=== PATIENT | male | born 1955 | race Caucasian/White ===

== ENCOUNTER 2017-09-08 16:18 | Emergency (ER) | payer MEDICAID ==
[2017-09-08] MEDS ORDERED: Acetaminophen 500 MG Tab PO ONE (16:56)
[2017-09-08] MEDS ORDERED: Lactated Ringers 1,000 ML IV ONE ×2 (16:56→17:56)
--- NOTE | 2017-09-08 17:07 | EDM.PDOC ---
ED HPI GENERAL MEDICAL PROBLEM - General Chief Complaint: Exposure to Heat or Cold Stated Complaint: POSSIBLE HEAT EXHAUSTION Time Seen by Provider: 09/08/17 16:50 Source of Information: Reports: Patient, RN History Limitations: Reports: Other (incomplete old records) - History of Present Illness INITIAL COMMENTS - FREE TEXT/NARRATIVE: 61 yo male here with chills and a couple of episodes of vomiting. Has had some dysuria since yesterday. Normally has nocturia x one. No rash, cough, SOB, or diarrhea. No abdominal pain. Was unaware of fever before arrival. Onset: Gradual Onset Date: 09/07/17 Duration: Hour(s):, Getting Worse Location: Reports: Generalized Quality: Reports: Burning (mild with urination, no other pain.) Severity: Mild Improves with: Reports: None Worsens with: Reports: Other (? time) Context: Reports: Other (unknown) Associated Symptoms: Reports: Fever/Chills, Malaise, Nausea/Vomiting, Weakness. 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) Back Pain Score (Numeric/FACES): 3 - Related Data Allergies Allergy/AdvReac Type Severity Reaction Status Date / Time No Known Allergies Allergy Verified 09/08/17 16:50 Home Meds: Home Meds Aspirin [Halfprin] 81 mg PO DAILY 09/08/17 [History] Lisinopril 1 tab PO DAILY 09/08/17 [History] Past Medical History Cardiovascular History: Reports: Hypertension - Infectious Disease History Infectious Disease History: Reports: Chicken Pox, Measles, Mumps - Past Surgical History HEENT Surgical History: Reports: Cataract Surgery Musculoskeletal Surgical History: Reports: Arthroscopic Procedure Social & Family History - Tobacco Use Smoking Status *Q: Current Some Day Smoker Years of Tobacco use: 40 Packs/Tins Daily: 0.2 Used Tobacco, but Quit: No Second Hand Smoke Exposure: Yes - Caffeine Use Caffeine Use: Reports: Coffee, Energy Drinks, Soda, Tea - Alcohol Use Days Per Week of Alcohol Use: 0 - Recreational Drug Use Recreational Drug Use: No ED ROS GENERAL - Review of Systems Review Of Systems: See Below Constitutional: Reports: Fever, Chills, Malaise, Weakness HEENT: Reports: No Symptoms Respiratory: Reports: No Symptoms Cardiovascular: Reports: No Symptoms Endocrine: Reports: No Symptoms GI/Abdominal: Reports: Nausea, Vomiting. Denies: Abdominal Pain, Diarrhea : Reports: Dysuria (mild), Urgency. Denies: Flank Pain, Urinary Retention Musculoskeletal: Reports: No Symptoms Skin: Reports: No Symptoms Neurological: Reports: No Symptoms Psychiatric: Reports: No Symptoms ED EXAM, GENERAL - Physical Exam Exam: See Below Exam Limited By: No Limitations General Appearance: Alert, WD/WN, No Apparent Distress, Obese Eye Exam: Bilateral Eye: Normal Inspection, PERRL Ears: Normal External Exam, Normal Canal, Normal TMs, Hearing Loss (mild) Ear Exam: Bilateral Ear: Auricle Normal, Canal Normal, TM normal Nose: Normal Inspection, Normal Mucosa, No Blood Throat/Mouth: Normal Inspection, Normal Lips, Normal Oropharynx, Normal Voice, No Airway Compromise Head: Atraumatic, Normocephalic Neck: Normal Inspection, Supple, Non-Tender Respiratory/Chest: No Respiratory Distress, Lungs Clear, Normal Breath Sounds, No Accessory Muscle Use, Chest Non-Tender Cardiovascular: Regular Rate, Rhythm, No Edema, Tachycardia GI/Abdominal: Normal Bowel Sounds, Soft, Non-Tender, No Distention Back Exam: Normal Inspection. No: CVA Tenderness (R), CVA Tenderness (L) Extremities: Normal Inspection, Normal Range of Motion, Non-Tender, No Pedal Edema Neurological: Alert, Oriented, CN II-XII Intact, Normal Cognition, No Motor/ Sensory Deficits Psychiatric: Normal Affect, Normal Mood Skin Exam: Warm, Dry, Intact, Normal Color, No Rash Lymphatic: No Adenopathy Course - Vital Signs Text/Narrative:: Called Dr. Warner @ 1810h Last Recorded V/S: Last Vital Signs Temp 38.3 C H 09/08/17 19:28 Pulse 90 09/08/17 19:28 Resp 15 09/08/17 19:28 BP 116/59 L 09/08/17 19:28 Pulse Ox 94 L 09/08/17 19:28 - Orders/Labs/Meds Labs: Laboratory Tests 09/08/17 09/08/17 09/08/17 Range/Units 17:00 17:00 17:00 WBC 13.1 H (4.5-11.0) K/uL RBC 5.22 (4.30-5.90) M/uL Hgb 15.3 H (12.0-15.0) g/dL Hct 45.8 (40.0-54.0) % MCV 88 (80-98) fL MCH 29 (27-31) pg MCHC 33 (32-36) % Plt Count 206 (150-400) K/uL Sodium 139 L (140-148) mmol/L Potassium 4.2 (3.6-5.2) mmol/L Chloride 103 (100-108) mmol/L Carbon Dioxide 23 (21-32) mmol/L Anion Gap 17.2 H (5.0-14.0) mmol/L BUN 21 H (7-18) mg/dL Creatinine 1.2 (0.8-1.3) mg/dL Est Cr Clr Drug Dosing 76.11 mL/min Estimated GFR (MDRD) > 60 (>60) Glucose 156 H (74-106) mg/dL Lactic Acid 2.3 H (0.4-2.0) mmol/L Calcium 8.4 L (8.5-10.1) mg/dL Urine Color Urine Appearance Urine pH (4.5-8.0) Ur Specific [place] (1.008-1.030) Urine Protein (NEGATIVE) mg/dL Urine Glucose (UA) (NEGATIVE) mg/dL Urine Ketones (NEGATIVE) mg/dL Urine Occult Blood (NEGATIVE) Urine Nitrite (NEGAITVE) Urine Bilirubin (NEGATIVE) Urine Urobilinogen (NORMAL) mg/dL Ur Leukocyte Esterase (NEGATIVE) Urine RBC (0-5) Urine WBC (0-5) Ur Epithelial Cells Amorphous Sediment Urine Bacteria Urine Mucus 09/08/17 Range/Units 17:54 WBC (4.5-11.0) K/uL RBC (4.30-5.90) M/uL Hgb (12.0-15.0) g/dL Hct (40.0-54.0) % MCV (80-98) fL MCH (27-31) pg MCHC (32-36) % Plt Count (150-400) K/uL Sodium (140-148) mmol/L Potassium (3.6-5.2) mmol/L Chloride (100-108) mmol/L Carbon Dioxide (21-32) mmol/L Anion Gap (5.0-14.0) mmol/L BUN (7-18) mg/dL Creatinine (0.8-1.3) mg/dL Est Cr Clr Drug Dosing mL/min Estimated GFR (MDRD) (>60) Glucose (74-106) mg/dL Lactic Acid (0.4-2.0) mmol/L Calcium (8.5-10.1) mg/dL Urine Color Yellow Urine Appearance Cloudy Urine pH 5.0 (4.5-8.0) Ur Specific [place] 1.025 (1.008-1.030) Urine Protein 30 H (NEGATIVE) mg/dL Urine Glucose (UA) Normal (NEGATIVE) mg/dL Urine Ketones 15 H (NEGATIVE) mg/dL Urine Occult Blood Large (NEGATIVE) Urine Nitrite Positive H (NEGAITVE) Urine Bilirubin Small (NEGATIVE) Urine Urobilinogen 1 (NORMAL) mg/dL Ur Leukocyte Esterase Large (NEGATIVE) Urine RBC 5-10 H (0-5) Urine WBC 20-30 H (0-5) Ur Epithelial Cells Rare Amorphous Sediment Not seen Urine Bacteria Many Urine Mucus Few Meds: Medications Discontinued Medications Generic Name Dose Route Start Last Admin Trade Name Freq PRN Reason Stop Dose Admin Acetaminophen 1,000 mg 09/08/17 16:56 09/08/17 17:27 Tylenol Extra Strength PO 09/08/17 16:57 1,000 mg ONETIME ONE Administration Cefdinir 600 mg 09/08/17 20:01 09/08/17 20:28 Omnicef PO 09/08/17 20:02 600 mg ONETIME ONE Administration Lactated Ringer's 1,000 mls @ 1,000 mls/hr 09/08/17 16:56 09/08/17 17:24 Ringers, Lactated IV 09/08/17 17:55 1,000 mls/hr BOLUS ONE Administration Ciprofloxacin/Dextrose 400 mg/ 200 mls @ 200 mls/hr 09/08/17 17:49 09/08/17 19:04 Premix IV 09/08/17 18:48 Not Given ONETIME ONE Lactated Ringer's 1,000 mls @ 1,000 mls/hr 09/08/17 17:56 09/08/17 18:28 Ringers, Lactated IV 09/08/17 18:55 1,000 mls/hr BOLUS ONE Administration Ciprofloxacin/Dextrose 400 mg/ 200 mls @ 200 mls/hr 09/08/17 18:07 09/08/17 18:33 Premix IV 09/08/17 19:06 200 mls/hr ONETIME ONE Administration Sodium Chloride 1,000 mls @ 999 mls/hr 09/08/17 20:00 Normal Saline IV ASDIRECTED [facility] Departure - Departure Time of Disposition: 19:15 Disposition: Home, Self-Care 01 Clinical Impression: Dehydration Urinary tract infection Qualifiers: Urinary tract infection type: site unspecified Hematuria presence: without hematuria Qualified Code(s): N39.0 - Urinary tract infection, site not specified - Discharge Information Instructions: Dehydration, Adult, [id number], Urinary Tract Infection, Adult Referrals: PCP,None [Primary Care Provider] - Forms: ED Department Discharge Care Plan Goals: A: Uti, dehydration P: will plan to discharge to home. advise to drink atleast 3- 20 ounce of water daily, avoid energy drinks take medication as prescribed, start tomorrow morning. return to ER immediately for any worsen fever, chills, nausea, vomiting, diarrhea, rash or not improving. follow up with Primary Care for recheck in 7 to 10 day
[2017-09-08] MEDS ORDERED: Ciprofloxacin in D5W 400 MG in Premix Bag 1 BAG IV ONE ×4 (17:49→18:07)
[2017-09-08] MEDS ORDERED: Sodium Chloride 0.9% 1,000 ML IV SCH (20:00)
[2017-09-08] MEDS ORDERED: Cefdinir 300 MG Cap PO ONE (20:01)
--- NOTE | 2017-09-08 20:17 | EDM.PDOC ---
ED HPI GENERAL MEDICAL PROBLEM - General Chief Complaint: Possible Sepsis Stated Complaint: POSSIBLE HEAT EXHAUSTION Time Seen by Provider: 09/08/17 16:50 Source of Information: Reports: Patient, RN History Limitations: Reports: Other (incomplete old records) - History of Present Illness INITIAL COMMENTS - FREE TEXT/NARRATIVE: 61 yo male here with chills and a couple of episodes of vomiting. Has had some dysuria since yesterday. Normally has nocturia x one. No rash, cough, SOB, or diarrhea. No abdominal pain. Was unaware of fever before arrival. Onset: Gradual Onset Date: 09/07/17 Duration: Hour(s):, Getting Worse Location: Reports: Generalized Quality: Reports: Burning (mild with urination, no other pain.) Severity: Mild Improves with: Reports: None Worsens with: Reports: Other (? time) Context: Reports: Other (unknown) Associated Symptoms: Reports: Fever/Chills, Malaise, Nausea/Vomiting, Weakness. 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) Back Pain Score (Numeric/FACES): 3 - Related Data Allergies Allergy/AdvReac Type Severity Reaction Status Date / Time No Known Allergies Allergy Verified 09/08/17 16:50 Home Meds: Home Meds Aspirin [Halfprin] 81 mg PO DAILY 09/08/17 [History] Lisinopril 1 tab PO DAILY 09/08/17 [History] Past Medical History Cardiovascular History: Reports: Hypertension - Infectious Disease History Infectious Disease History: Reports: Chicken Pox, Measles, Mumps - Past Surgical History HEENT Surgical History: Reports: Cataract Surgery Musculoskeletal Surgical History: Reports: Arthroscopic Procedure Social & Family History - Tobacco Use Smoking Status *Q: Current Some Day Smoker Years of Tobacco use: 40 Packs/Tins Daily: 0.2 Used Tobacco, but Quit: No Second Hand Smoke Exposure: Yes - Caffeine Use Caffeine Use: Reports: Coffee, Energy Drinks, Soda, Tea - Alcohol Use Days Per Week of Alcohol Use: 0 - Recreational Drug Use Recreational Drug Use: No ED ROS GENERAL - Review of Systems Review Of Systems: See Below Constitutional: Reports: No Symptoms HEENT: Reports: No Symptoms Respiratory: Reports: No Symptoms Cardiovascular: Reports: No Symptoms Endocrine: Reports: No Symptoms GI/Abdominal: Reports: No Symptoms : Reports: No Symptoms Musculoskeletal: Reports: No Symptoms Skin: Reports: No Symptoms Neurological: Reports: No Symptoms Psychiatric: Reports: No Symptoms Hematologic/Lymphatic: Reports: No Symptoms Immunologic: Reports: No Symptoms Free Text/Narrative/Comment: re-assess patient, Medication and IV fluids given ED EXAM, GI/ABD - Physical Exam Exam: See Below Exam Limited By: No Limitations General Appearance: Alert, WD/WN, No Apparent Distress Eyes: Bilateral: Normal Appearance Ears: Normal External Exam Nose: Normal Inspection Throat/Mouth: Normal Inspection Head: Atraumatic, Normocephalic Neck: Normal Inspection, Supple, Non-Tender, Full Range of Motion Respiratory/Chest: No Respiratory Distress, Lungs Clear, Normal Breath Sounds, No Accessory Muscle Use, Chest Non-Tender Cardiovascular: Normal Peripheral Pulses, Regular Rate, Rhythm, No Edema, No Murmur GI/Abdominal Exam: Normal Bowel Sounds, Soft, Non-Tender, No Distention, No Abnormal Bruit, No Mass (Male) Exam: Deferred Rectal (Males) Exam: Deferred Back Exam: Normal Inspection, Full Range of Motion, NT Extremities: Normal Inspection, Normal Range of Motion, Non-Tender, Normal Capillary Refill, No Pedal Edema Neurological: Alert, Oriented, No Motor/Sensory Deficits Psychiatric: Normal Affect, Normal Mood Skin Exam: Warm, Dry, Intact, Normal Color, No Rash Lymphatic: No Adenopathy Course - Vital Signs Last Recorded V/S: Last Vital Signs Temp 38.3 C H 09/08/17 19:28 Pulse 90 09/08/17 19:28 Resp 15 09/08/17 19:28 BP 116/59 L 09/08/17 19:28 Pulse Ox 94 L 09/08/17 19:28 - Orders/Labs/Meds Orders: Active Orders 24 hr Category Date Time Status CULTURE BLOOD [BC] Stat Lab 09/08/17 17:00 Received CULTURE BLOOD [BC] Stat Lab 09/08/17 17:30 Received CULTURE URINE [RM] Stat Lab 09/08/17 18:11 Received UA W/MICROSCOPIC [URIN] Stat Lab 09/08/17 17:54 Ordered Labs: Laboratory Tests 09/08/17 09/08/17 09/08/17 Range/Units 17:00 17:00 17:00 WBC 13.1 H (4.5-11.0) K/uL RBC 5.22 (4.30-5.90) M/uL Hgb 15.3 H (12.0-15.0) g/dL Hct 45.8 (40.0-54.0) % MCV 88 (80-98) fL MCH 29 (27-31) pg MCHC 33 (32-36) % Plt Count 206 (150-400) K/uL Sodium 139 L (140-148) mmol/L Potassium 4.2 (3.6-5.2) mmol/L Chloride 103 (100-108) mmol/L Carbon Dioxide 23 (21-32) mmol/L Anion Gap 17.2 H (5.0-14.0) mmol/L BUN 21 H (7-18) mg/dL Creatinine 1.2 (0.8-1.3) mg/dL Est Cr Clr Drug Dosing 76.11 mL/min Estimated GFR (MDRD) > 60 (>60) Glucose 156 H (74-106) mg/dL Lactic Acid 2.3 H (0.4-2.0) mmol/L Calcium 8.4 L (8.5-10.1) mg/dL Urine Color Urine Appearance Urine pH (4.5-8.0) Ur Specific [place] (1.008-1.030) Urine Protein (NEGATIVE) mg/dL Urine Glucose (UA) (NEGATIVE) mg/dL Urine Ketones (NEGATIVE) mg/dL Urine Occult Blood (NEGATIVE) Urine Nitrite (NEGAITVE) Urine Bilirubin (NEGATIVE) Urine Urobilinogen (NORMAL) mg/dL Ur Leukocyte Esterase (NEGATIVE) Urine RBC (0-5) Urine WBC (0-5) Ur Epithelial Cells Amorphous Sediment Urine Bacteria Urine Mucus 09/08/17 Range/Units 17:54 WBC (4.5-11.0) K/uL RBC (4.30-5.90) M/uL Hgb (12.0-15.0) g/dL Hct (40.0-54.0) % MCV (80-98) fL MCH (27-31) pg MCHC (32-36) % Plt Count (150-400) K/uL Sodium (140-148) mmol/L Potassium (3.6-5.2) mmol/L Chloride (100-108) mmol/L Carbon Dioxide (21-32) mmol/L Anion Gap (5.0-14.0) mmol/L BUN (7-18) mg/dL Creatinine (0.8-1.3) mg/dL Est Cr Clr Drug Dosing mL/min Estimated GFR (MDRD) (>60) Glucose (74-106) mg/dL Lactic Acid (0.4-2.0) mmol/L Calcium (8.5-10.1) mg/dL Urine Color Yellow Urine Appearance Cloudy Urine pH 5.0 (4.5-8.0) Ur Specific [place] 1.025 (1.008-1.030) Urine Protein 30 H (NEGATIVE) mg/dL Urine Glucose (UA) Normal (NEGATIVE) mg/dL Urine Ketones 15 H (NEGATIVE) mg/dL Urine Occult Blood Large (NEGATIVE) Urine Nitrite Positive H (NEGAITVE) Urine Bilirubin Small (NEGATIVE) Urine Urobilinogen 1 (NORMAL) mg/dL Ur Leukocyte Esterase Large (NEGATIVE) Urine RBC 5-10 H (0-5) Urine WBC 20-30 H (0-5) Ur Epithelial Cells Rare Amorphous Sediment Not seen Urine Bacteria Many Urine Mucus Few Meds: Medications Discontinued Medications Generic Name Dose Route Start Last Admin Trade Name Freq PRN Reason Stop Dose Admin Acetaminophen 1,000 mg 09/08/17 16:56 09/08/17 17:27 Tylenol Extra Strength PO 09/08/17 16:57 1,000 mg ONETIME ONE Administration Cefdinir 600 mg 09/08/17 20:01 09/08/17 20:28 Omnicef PO 09/08/17 20:02 600 mg ONETIME ONE Administration Lactated Ringer's 1,000 mls @ 1,000 mls/hr 09/08/17 16:56 09/08/17 17:24 Ringers, Lactated IV 09/08/17 17:55 1,000 mls/hr BOLUS ONE Administration Ciprofloxacin/Dextrose 400 mg/ 200 mls @ 200 mls/hr 09/08/17 17:49 09/08/17 19:04 Premix IV 09/08/17 18:48 Not Given ONETIME ONE Lactated Ringer's 1,000 mls @ 1,000 mls/hr 09/08/17 17:56 09/08/17 18:28 Ringers, Lactated IV 09/08/17 18:55 1,000 mls/hr BOLUS ONE Administration Ciprofloxacin/Dextrose 400 mg/ 200 mls @ 200 mls/hr 09/08/17 18:07 09/08/17 18:33 Premix IV 09/08/17 19:06 200 mls/hr ONETIME ONE Administration Sodium Chloride 1,000 mls @ 999 mls/hr 09/08/17 20:00 Normal Saline IV ASDIRECTED [facility] - Re-Assessments/Exams Free Text/Narrative Re-Assessment/Exam: 09/08/17 20:11:ER,(re-assess patient, ER MD am shift is done) Mr. Verma received 2 liters of LR, IV Cipro 400mg, PO Omnicef 600mg once. vitals signs improving, Mr. Verma reports feeling much better, denies any chest pain, shortness of breath, abdominal pain, nausea or vomiting. "would like to go home." 0; temp 38.3 pulse 90 resp rate 15 blood pressure 116/59 oxygen sat room air 94% large built tall man, in no distress. heent; normal neck; supple chest; lungs clear to bases, no wheezing, rhonchi or crackles, heart s1s2 no murmur abdomen; large, soft, non-tender, bowel sounds positive x 4 quadrant ext; legs no edema, cyanosis or clubbing, normal cap refill skin; well tanned, no sores, lesions or bruising A: Uti, dehydration P: will plan to discharge to home. advise to drink atleast 3- 20 ounce of water daily, avoid energy drinks take medication as prescribed, start tomorrow morning. return to ER immediately for any worsen fever, chills, nausea, vomiting, diarrhea, rash or not improving. follow up with Primary Care for recheck in 7 to 10 day Departure - Departure Time of Disposition: 20:29 Disposition: Home, Self-Care 01 Condition: Good Clinical Impression: Urinary tract infection, Dehydration - Discharge Information Instructions: Dehydration, Adult, [id number], Urinary Tract Infection, Adult Referrals: PCP,None [Primary Care Provider] - Forms: ED Department Discharge Care Plan Goals: A: Uti, dehydration P: will plan to discharge to home. advise to drink atleast 3- 20 ounce of water daily, avoid energy drinks take medication as prescribed, start tomorrow morning. return to ER immediately for any worsen fever, chills, nausea, vomiting, diarrhea, rash or not improving. follow up with Primary Care for recheck in 7 to 10 day - Problem List Review Problem List Initiated/Reviewed/Updated: Yes - Assessment/Plan Plan: A: Uti, dehydration P: will plan to discharge to home. advise to drink atleast 3- 20 ounce of water daily, avoid energy drinks take medication as prescribed, start tomorrow morning. return to ER immediately for any worsen fever, chills, nausea, vomiting, diarrhea, rash or not improving. follow up with Primary Care for recheck in 7 to 10 day
== END 2017-09-08 20:29 | disposition home or self-care (01) ==
LOC: JP.ED 16:18
DX: N39.0 Urinary tract infection, site not specified (principal); E86.0 Dehydration; F17.210 Nicotine dependence, cigarettes, uncomplicated; I10 Essential (primary) hypertension; Z79.82 Long term (current) use of aspirin; Z79.899 Other long term (current) drug therapy
CPT/HCPCS: 36415; 80048; 81001; 83605; 85027; 87040; 87086; 87088; 87186; 96361; 96365; 99284; A9270; J0744; J7120; 87077